=== PATIENT | female | born 2000 | race Caucasian/White ===

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

== ENCOUNTER 2024-05-26 21:51 | Emergency (ER) | payer SELFPAY ==
[2024-05-26 21:52] VITALS: BP 125/87; PULSE 72; RESP 16; TEMP 36.6; O2SAT 99; BMI 18.6
[2024-05-26 21:54] VITALS: BP 99/66; PULSE 60; RESP 18; TEMP 36.8; O2SAT 100
--- NOTE | 2024-05-26 23:08 | EX.ED.DYSGE1 ---
HPI History of Present Illness Chief Complaint: Sore Throat Informant: patient and spouse/S.O. Narrative Narrative: Patient is a 23-year-old female with no significant past medical history. She states that roughly 7 to 10 days ago she had a sore throat and believes she had strep. She states that she took a COVID test and it was negative. She states she never got placed on antibiotics and the symptoms slowly resolved. However in the last 1 to 2 days her sore throat has returned and she states she felt a lump in the back of her throat which concerned her for potential infection and therefore she comes in for evaluation [facility] Medical History (Updated 05/26/24 @ 23:[address] Aung Petty, DO) Hx of fracture of arm Home Medications ?Medication ?Instructions ?Recorded ?Last Taken ?Type prednisone 20 mg tablet 40 mg (2 x 20 mg) PO DAILY 5 days 05/26/24 Unknown Rx #10 tabs Allergy/AdvReac Type Severity Reaction Status Date / Time cetirizine (From Zyrtec) AdvReac Anaphylaxis Verified 05/26/24 21:54 montelukast (From Singula) AdvReac Anaphylaxis Verified 05/26/24 21:54 Surgical History (Updated 05/26/24 @ 22:28 by Smiley Hernandez) Hx of facial fracture repair Social History Smoking Status: Current every day smoker tobacco type: e-cigarettes ROS ROS ED Constitutional Constitutional ED: Denies chills or fever(s) Eyes Eyes: Denies blurry vision or change in vision ENT ENT ED: Reports sore throat; Denies rhinorrhea Cardiovascular Cardiovascular: Denies chest pain Respiratory/Chest Respiratory/Chest: Denies cough or dyspnea Gastrointestinal Gastrointestinal: Denies abdominal pain, diarrhea, nausea or vomiting Genitourinary Genitourinary ED: Denies dysuria Musculoskeletal Musculoskeletal: Denies myalgias or neck pain Integumentary Denies rash Neurologic Neurologic: Denies headache(s) Hematologic/Lymphatic Hematologic/Lymphatic: Denies easy bleeding or easy bruising Allergic/Immunologic Allergic/Immunologic ED: Denies mouth swelling or tongue swelling EXAM Physical Exam Const Vital Signs: 05/26/24 21:52 05/26/24 21:54 Temperature 98 F 98.3 F Temperature Source Temporal Oral Pulse Rate 72 60 Respiratory Rate 16 18 Blood Pressure 125/87 H 99/66 Blood Pressure Mean 99 77 Pulse Ox 99 100 Oxygen Delivery Method Room Air Room Air Positive well nourished and well developed General Appearance ED: well developed; Negative for pallor HEENT Reports moist mucous membranes HEENT Narrative: There is cobblestoning and faint erythema in the posterior pharynx. No tonsillar hypertrophy. No hard palate petechiae. No trismus or change in voice or difficulty with secretions. Along the left tonsil there is a singular small herpangina like lesion. No obvious abscess formation Eyes PERRL and EOMs intact bilaterally Neck supple Neck Narrative: Positive anterior cervical lymphadenopathy noted No crepitance palpated Resp normal respiratory effort and clear to auscultation bilaterally Cardio regular rate and regular rhythm Extremity normal to inspection Neuro oriented x3, CN's II-XII intact bilaterally and no sensory deficits noted Sensorium / Orientation: alert Motor Exam: strength 5/5 throughout Psych mental status grossly normal Skin no rashes or lesions noted General Skin Exam: Negative for jaundice or pallor MDM MDM MDM Narrative Medical decision making narrative: Patient presented to the ER with stable vitals. Differential diagnosis for her sore throat is strep pharyngitis versus COVID versus mono versus another viral infection. There is no trismus or change in voice and therefore I have low concern for a peritonsillar abscess or epiglottitis. A rapid strep test was obtained which was negative which does correlate with her exam and COVID test was also negative. She does not have a large posterior lymph node going against acute mono. Therefore her history and exam and workup indicate this is a viral pharyngitis and without findings to suggest peritonsillar abscess or epiglottitis there is no need for further workup and she is otherwise safe for discharge with symptomatic care History & Record Review Discussion w/independent historian: Patient and Significant other Discharge Plan Triage Chief Complaint: Sore Throat ED Provider: Aung Petty Dx/Rx/DC Orders Clinical Impression: Pharyngitis Instructions: ED Pharyngitis, Viral Prescriptions: New prednisone 20 mg tablet 40 mg PO DAILY 5 Days Qty: 10 0RF Primary Care Provider: Care Physician,No Primary Referrals: Artemio Juárez MD [Med Staff - Active Staff] - Care Physician,No Primary [Primary Care Provider] - Print Language: Yoruba Disposition Disposition: Home, Self Care Discharge Date/Time: 05/26/24 23:22
[2024-05-26] MEDS: dexAMETHasone 10 MG/ML Vial PO.IVFORM (23:18)
== END 2024-05-26 23:22 | disposition home or self-care (01) ==
PROVIDERS: Emergency Provider Emergency Medicine; Visit Provider Emergency Medicine
DX: J02.9 Acute pharyngitis, unspecified (principal); F17.290 Nicotine dependence, other tobacco product, uncomplicated
CPT/HCPCS: 87631; 87651; 99282